=== PATIENT | male | born 1970 | race Caucasian/White ===

== ENCOUNTER 2017-10-09 03:03 | Emergency (ER) | payer SELFPAY ==
[2017-10-09 03:12] VITALS: BP 132/86
[2017-10-09] MEDS ORDERED: DIPH/PERTUSS(ACELL)/TETANUS VAC/PF 0.5 ML SYR (>=10YO) IM ONE (03:28)
--- NOTE | 2017-10-09 03:30 | ER Document Report ---
ED Hand/Wrist Injury - General Chief Complaint: Hand Injury Stated Complaint: STINGRAY STING Time Seen by Provider: 10/09/17 03:22 Notes: Patient is a 47-year-old male that comes emergency department for chief complaint of hand injury. He states that his friend caught a sting ray, he was trying to get the stingray off the hook when the sting ray whipped around and the elin caught him in the lower palmar part of his hand (over the ulnar aspect) . He states he thinks the Blanca came out, he tried cleaning with iodine, rinsing with hot water, but the pain became very sharp so he came to the emergency department. He is not up-to-date on his tetanus. He denies any daily medications or medical problems. - Related Data Allergies/Adverse Reactions: No Known Allergies Allergy (Unverified 10/09/17 03:28) Past Medical History - General Information source: Patient - Social History Smoking Status: Never Smoker Frequency of alcohol use: Occasional Drug Abuse: None Lives with: Alone Family History: Reviewed & Not Pertinent - Medical History Medical History: Negative Surgical Hx: Negative - Immunizations Immunizations up to date: Yes Hx Diphtheria, Pertussis, Tetanus Vaccination: Yes Review of Systems - Review of Systems Constitutional: No symptoms reported EENT: No symptoms reported Cardiovascular: No symptoms reported Respiratory: No symptoms reported Gastrointestinal: No symptoms reported Genitourinary: No symptoms reported Male Genitourinary: No symptoms reported Musculoskeletal: See HPI Skin: See HPI Hematologic/Lymphatic: No symptoms reported Neurological/Psychological: No symptoms reported Physical Exam - Vital signs Vitals: Temp Pulse Resp BP Pulse Ox 98.2 F 88 20 132/86 H 97 10/09/17 03:11 10/09/17 03:11 10/09/17 03:11 10/09/17 03:11 10/09/17 03:11 Interpretation: Normal - General General appearance: Anxious In distress: Mild - HEENT Head: Normocephalic, Atraumatic Eyes: Normal Pupils: PERRL - Respiratory Respiratory status: No respiratory distress Chest status: Nontender Breath sounds: Normal Chest palpation: Normal - Cardiovascular Rhythm: Regular Heart sounds: Normal auscultation Murmur: No - Abdominal Inspection: Normal Distension: No distension Bowel sounds: Normal Tenderness: Nontender Organomegaly: No organomegaly - Back Back: Normal, Nontender - Extremities General upper extremity: Other - Small jagged laceration over the palmar aspect of the left hand at the fifth MCP that is about 0.5 cm in length, there is small amount of soft tissue swelling on the area, no palpable foreign body, no visualized foreign body, normal range of motion of the hand, normal neurovascular exam, normal hand exam otherwise General lower extremity: Normal inspection, Nontender, Normal strength, Normal temperature - Neurological Neuro grossly intact: Yes Cognition: Normal Orientation: AAOx4 [place] Coma Scale Eye Opening: Spontaneous [place] Coma Scale Verbal: Oriented Jam[place] Coma Scale Motor: Obeys Commands Jamar Coma Scale Total: 15 Speech: Normal Motor strength normal: LUE, RUE, LLE, RLE Sensory: Normal - Psychological Associated symptoms: Normal affect, Normal mood - Skin Skin Temperature: Warm Skin Moisture: Dry Skin Color: Normal Course - Re-evaluation Re-evalutation: Small jagged laceration from stingray elin, patient's and was immediately placed in hot water, after about 30 seconds patient had full relief of his pain. Normal neurovascular exam, no other injuries noted. Tetanus updated. X- ray does not show foreign body or fracture. Patient will be covered with doxycycline after discussion of options, discussed wound care, follow-up, return precautions. Patient states understanding and agreement. - Vital Signs Vital signs: Temp Pulse Resp BP Pulse Ox 98.2 F 88 20 132/86 H 97 10/09/17 03:11 10/09/17 03:11 10/09/17 03:11 10/09/17 03:11 10/09/17 03:11 - Diagnostic Test Radiology reviewed: Image reviewed, Reports reviewed Discharge - Discharge Clinical Impression: Contact with stingray as cause of accidental injury Hand laceration Qualifiers: Encounter type: initial encounter Foreign body presence: without foreign body Laterality: left Qualified Code(s): S61.412A - Laceration without foreign body of left hand, initial encounter Condition: Stable Disposition: HOME, SELF-CARE Additional Instructions: The x-ray is normal, does not show broken bone or stingray elin, does not show other foreign body. We are covering you with doxycycline antibiotic to prevent infection, keep area clean, clean with soap and water, apply topical antibiotic. Follow-up with primary care. Return for any concerning symptoms including increased swelling, redness, discolored drainage, fever, or any other concerning symptoms. Prescriptions: Doxycycline Hyclate 100 mg PO BID #10 capsule
--- NOTE | 2017-10-09 03:56 | RADIOLOGY REPORT (SQ) ---
EXAM DESCRIPTION: XR HAND 3 OR MORE VIEWS CLINICAL HISTORY: 47 years Male, ? stingray elin in hand COMPARISON: None. Findings: Mild swelling. Bones, joints, and soft tissues of the XR HAND LEFT 3 VIEWS appear otherwise intact. No radiopaque foreign body. IMPRESSION: Mild swelling.
[2017-10-09] MEDS ORDERED: HYDROCODONE/ACETAMINOPHEN 5-325 MG (6 TAB/ER DISP) PO PRN (04:20)
[2017-10-09] MEDS ORDERED: DOXYCYCLINE HYCLATE 100 MG TABLET PO ONE (04:20)
== END 2017-10-09 04:50 | disposition home or self-care (01) ==
LOC: ER 03:03
DX: T63.511A Toxic effect of contact with stingray, accidental (unintentional), initial encounter (principal); S61.412A Laceration without foreign body of left hand, initial encounter; Z23 Encounter for immunization
CPT/HCPCS: 90471; 90715; 99283